=== PATIENT | female | born 1995 | race Hispanic/Latino ===

== ENCOUNTER 2018-05-04 20:56 | Emergency (ER) | payer OTHER ==
[2018-05-04 21:14] LABS: APPEARANCE,URINE Cloudy (CLEAR); BILIRUBIN,URINE Negative (NEGATIVE); COLOR,URINE Orange (YELLOW); GLUCOSE, URINE (UA) Negative (NEGATIVE); KETONES,URINE Trace mg/dL (NEGATIVE); LEUKOCYTE ESTERASE ,URINE Moderate (NEGATIVE); NITRATE,URINE Negative (NEGATIVE); OCCULT BLOOD,URINE Large (NEGATIVE); PROTEIN,URINE POS 1+ (NEGATIVE); UROBILINOGEN,URINE 0.2 mg/dL (0.2-1.0)
[2018-05-04 21:27] LABS: BACTERIA,URINE None Seen /HPF (None Seen); RBC,URINE Full Field /HPF (0-1)
[2018-05-04] MEDS ORDERED: CEFTRIAXONE SODIUM 1 GM ONE (22:38)
[2018-05-04] MEDS ORDERED: LIDOCAINE HCL-MPF 1% 2ML VIAL ONE (22:38)
[2018-05-04] MEDS ORDERED: ONDANSETRON ODT 4 MG TAB ONE (22:39)
== END 2018-05-04 23:35 | disposition home or self-care (01) ==
LOC: EDH 20:56
DX: N39.0 Urinary tract infection, site not specified (principal)
CPT/HCPCS: 81001; 81025; 96372; 99284; J0696; J3490

== ENCOUNTER 2024-01-04 11:03 | Emergency (ER) | payer MEDICAID ==
[~2024-01-04] VITALS: Ht 160 cm; Wt 63.5 kg
[2024-01-04 11:22] LABS: APPEARANCE,URINE CLEAR (CLEAR); BILIRUBIN,URINE NEGATIVE (NEGATIVE); COLOR,URINE YELLOW (YELLOW); GLUCOSE, URINE (UA) NEGATIVE (NEGATIVE); KETONES,URINE NEGATIVE (NEGATIVE); LEUKOCYTE ESTERASE ,URINE NEGATIVE Leu/uL (NEGATIVE); NITRATE,URINE NEGATIVE (NEGATIVE); OCCULT BLOOD,URINE NEGATIVE (NEGATIVE); PH,URINE 5.5 (5.0-8.0); PROTEIN,URINE 20 mg/dL (NEGATIVE); UROBILINOGEN,URINE 0.2 mg/dL (0.2-1.0)
[2024-01-04 11:23] LABS: ADD UA MICROSCOPIC YES
[2024-01-04 11:25] LABS: HCG,QUALITATIVE URINE NEGATIVE (NEGATIVE)
[2024-01-04 11:37] LABS: BACTERIA,URINE RARE /HPF (None Seen); MUCUS,URINE MANY LPF (None Seen); RBC,URINE 0-1 /HPF (0-1); SQUAMOUS EPITHELIAL CELL,UR FEW /HPF (0-2); WBC,URINE 0-1 /HPF (0-1)
[2024-01-04 11:54] LABS: BASOPHILS # (AUTO) 0.04 K/uL (0.00-0.20); BASOPHILS % (AUTO) 0.4 % (0.0-5.0); EOSINOPHILS # (AUTO) 0.08 K/uL (0.00-0.70); EOSINOPHILS % (AUTO) 0.8 % (0.0-8.0); HEMATOCRIT 38.7 % (36-48); IMMATURE GRANULOCYTE ABSOLUTE 0.04 K/uL (0-1); LYMPHOCYTES # (AUTO) 2.7 K/uL (1.0-4.8); LYMPHOCYTES % (AUTO) 26.2 % (21.0-51.0); MEAN CORPUSCULAR HEMOGLOBIN 23.9 pg (27.0-33.0); MEAN CORPUSCULAR HGB CONC 32.3 g/dL (32.0-36.0); MEAN CORPUSCULAR VOLUME 74.1 fL (79-99); MONOCYTES # (AUTO) 0.6 K/uL (0.1-1.0); MONOCYTES % (AUTO) 5.6 % (3.0-13.0); NEUTROPHILS # (AUTO) 6.9 K/uL (1.8-7.7); NEUTROPHILS % (AUTO) 66.6 % (40.0-77.0); PLATELET COUNT (AUTO) 337 K/uL (130-400); RED BLOOD CELL COUNT(AUTO) 5.22 MIL/uL (4.00-5.50); RED CELL DISTRIBUTION WIDTH 15.9 % (11.0-15.5); WHITE BLOOD COUNT (AUTO) 10.4 K/uL (4.8-10.8)
[2024-01-04] MEDS: 0.9%NACL 1000ML 1,000 ML IV ONE (11:57)
[2024-01-04] MEDS: MORPHINE 2 MG SYG IVP ONE (11:57)
[2024-01-04] MEDS: ONDANSETRON 4MG INJ IVP ONE (11:57)
[2024-01-04 11:58] LABS: CREATININE 0.7 mg/dL (0.5-1.5); POTASSIUM 3.8 mmol/L (3.5-5.1)
[2024-01-04 12:02] LABS: ALBUMIN 3.4 g/dL (3.5-5.0); BILIRUBIN,TOTAL 0.3 mg/dL (0.2-1.0); TOTAL PROTEIN, SERUM 7.2 g/dL (6.0-8.3)
[2024-01-04] MEDS ORDERED: IOHEXOL-350 75 ML VIAL IV ONE (12:08)
[2024-01-04] MEDS ORDERED: ONDA4TAB10 PO (13:19)
[2024-01-04] MEDS ORDERED: DICY20TA2 PO (13:19)
[2024-01-04 14:29] VITALS: BP 114/65; PULSE 75; RESP 18; O2SAT 100
== END 2024-01-04 14:29 | disposition home or self-care (01) ==
LOC: EDH 11:03
DX: R10.2 Pelvic and perineal pain (principal); R73.9 Hyperglycemia, unspecified; Z98.890 Other specified postprocedural states
CPT/HCPCS: 99285; 74177; 96374; 96361; 96375; 80053; 83690; 85025; 81001; 81025; 36415; J2270; J7030; J2405; Q9967